=== PATIENT | female | born 1980 | race Hispanic/Latino ===

== ENCOUNTER 2019-11-29 06:36 | Inpatient (IN) | payer MEDICAID, SELFPAY ==
[2019-11-29 07:03] LABS: #Eosinphils 0.3 thou/uL (0.0-0.7); #Lymphocytes 3.3 thou/uL (1.20-3.40); #Monocytes 0.4 thou/uL (0.11-0.59); #Neutrophils 3.9 thou/uL (1.40-6.50); %Basophils 0.5 % (0.0-1.0); %Eosinophils 3.9 % (0.0-10.0); %Lymphocytes 41.6 % (21.0-51.0); %Monocytes 5.5 % (0.0-10.0); %Neutrophils 48.6 % (42.0-75.0); Hemoglobin 8.4 g/dL (12.0-16.0); Mean Corpuscular HGB CONC 33.9 g/dL (32.0-36.0); Mean Corpuscular Hemoglobin 30.7 pg (27.0-31.0); Mean Corpuscular Volume 90.5 fL (78.0-98.0); Platelet Count 187 thou/uL (130-400); RBC Distribution Width 11.4 % (11.5-14.5); Red Blood Cell (RBC) Count 2.75 mill/uL (4.20-5.40)
--- NOTE | 2019-11-29 07:12 | RAD ---
Exam: Chest one view HISTORY:Syncope. Chest pain x3 days. Comparison: None FINDINGS: Lines and tubes: Right-sided HemoSplit dialysis catheter terminates in the cavoatrial junction. Cardiac silhouette: Normal Aorta: Unremarkable Pulmonary vessels: Normal Costophrenic angles: Clear LUNGS: No masses or consolidation. Pneumothorax: None Osseous abnormalities: None IMPRESSION: No acute cardiopulmonary process.
[2019-11-29 07:19] LABS: Albumin 4.5 g/dL (3.5-5.0)
[2019-11-29 07:20] LABS: Chloride 107 mmol/L (98-107); Potassium 3.7 mmol/L (3.5-5.1); Sodium 138 mmol/L (136-145)
[2019-11-29 07:21] LABS: Calcium 7.7 mg/dL (7.8-10.44); Glucose 98 mg/dL (70-105)
[2019-11-29 07:22] LABS: Globulin 2.8 g/dL (2.4-3.5); Protein, Total 7.3 g/dL (6.0-8.3)
[2019-11-29 07:23] LABS: Anion Gap 23 mmol/L (10-20); Bilirubin, Total 0.7 mg/dL (0.2-1.2); Carbon Dioxide 12 mmol/L (22-29)
[2019-11-29 07:24] LABS: Alkaline Phosphatase 129 U/L (40-110)
[2019-11-29 07:25] LABS: Calc. Creatinine Clearance 0 mL/min (70-130); Estimated GFR-MDRD 3
[2019-11-29 07:26] LABS: AST (SGOT) 11 U/L (5-34)
[2019-11-29 07:27] LABS: ALT (SGPT) Less than 7 U/L (8-55); Lipase 68 U/L (8-78)
[2019-11-29 07:28] LABS: CK (CPK) 92 U/L (29-168)
[2019-11-29 07:42] LABS: BUN (Urea Nitrogen) 123 mg/dL (7.0-18.7); Magnesium 2.7 mg/dL (1.6-2.6)
[2019-11-29 07:44] LABS: CKMB 0.6 ng/mL (0-6.6)
[2019-11-29 07:48] LABS: Phosphorus 9.1 mg/dL (2.3-4.7)
--- NOTE | 2019-11-29 11:23 | PDOC.FPRHP ---
- History of Present Illness Chief Complaint: nausea, dizziness, fatigue History of Present Illness: 40YOF with a PMH notable for HTN and idiopathic ESRD who presented to the ED for evaluation for dizziness, generalized fatigue & weakness and nausea that has been ongoing for the last 3-4 days. No reported vomiting, diarrhea, fever, chest pain, SOB, edema, dysuria or hematuria. Still makes urine. Endorses decreased po intake and chills. Also endorses a "warmth in back" that began 3-4 days ago as well. No reported pain or associated rash. that began while back before she started HD & returned 3-4 days ago with dizziness. fatigue & generalized. No sick contacts. Reports she developed similar symptoms prior to her last HD session & that they resolved with HD treatment. Of note, patient reports she was diagnosed with ESRD ~1 year ago and does not know why her kidneys are failing. Has no permanent HD access but was last dialyzed in [place] on 10/30 and 11/04 & Has seen a peg driver, Dr. Makayla Tejada in [place], [place], who prescribed medicine for her HTN & ESRD but reportedly told the patient she could no longer keep seeing her. On further evaluation, it was noted that the patient has multiple charts in [facility] and that she in fact had a workup for her ESRD done here with Dr. Cronin in September of 2015. She underwent renal biopsy which revealed global glomerulosclerosis with severe interstitial fibrosis & tubular atrophy. She also had serology & hepatitis testing which was all negative. - Allergies/Adverse Reactions Allergies Allergy/AdvReac Type Severity Reaction Status Date / Time No Known Allergies Allergy Verified 11/29/19 13:10 - Home Medications Medication Instructions Recorded Confirmed Type Calcitriol 0.25 mcg PO DAILY 11/29/19 11/29/19 History Cholecalciferol (Vitamin D3) 1,250 mcg PO Q7DAYS 11/29/19 11/29/19 History [Vitamin D3] Ferrous Sulfate 325 mg PO 11/29/19 History NIFEdipine [Procardia XL] 30 mg PO DAILY 11/29/19 11/29/19 History Sevelamer Carbonate [Renvela] 800 mg PO TID-WM 11/29/19 11/29/19 History - History PMHx: HTN and idiopathic ESRD PSHx: R temp HD access (11/02/19), C/S x2, cholecystectomy, renal biopsy in 2016 (per chart review) FHx: non-contributory Social: No TAD. Lives with & 3 sons in [place]. Stay at home mom. - Review of Systems General: reports: weight/appetite/sleep changes, fatigue. denies: fever/chills Eyes: denies: eye pain, vision changes ENT: reports: other (no ringing in ears or congestion) Respiratory: denies: cough, shortness of breath Cardiovascular: reports: chest pain (over tunneled cath site). denies: edema Gastrointestinal: reports: nausea. denies: vomiting, diarrhea, abdominal pain Genitourinary: reports: other (no hematuria). denies: dysuria Skin: reports: rashes, itching Musculoskeletal: reports: tenderness, other ("warmth in back") Neurological: denies: numbness, syncope Psychological: denies: anxiety, depression - Vital signs BP: 119/86 HR: 66 RR: 15 Tmax: 98F Pox: 100% on RA Wt: 61 kg - Physical Exam Constitutional: NAD, awake, alert and oriented, well developed HEENT: normocephalic and atraumatic, conjunctiva clear, grossly normal vision, TM's clear and intact, grossly normal hearing, MMM Neck: supple, FROM Chest: other (Tunnel HD cath in R chest) Heart: RRR, normal S1/S2, no murmurs/rubs/gallops, pulses present, no edema Lungs: CTAB, no respiratory distress, good air movement, no rales/rhonchi, no wheezing, no retractions Abdomen: soft, non-tender, bowel sounds present Musculoskeletal: normal structure, normal tone, ROM grossly normal Neurological: no focal deficit, CN II-XII intact Skin: good turgor -Skin: erythematous scaly rash noted on R neck Heme/Lymphatic: no unusual bruising or bleeding, no purpura, no petechia Psychiatric: normal mood and affect, good judgment and insight, intact recent and remote memory FMR H&P: Results - Labs Result Diagrams: 11/29/19 06:45 11/29/19 06:45 Lab results: WBC 8.0 thou/uL (4.8-10.8) 11/29/19 06:45 Hgb 8.4 g/dL (12.0-16.0) L 11/29/19 06:45 Hct 24.9 % (36.0-47.0) L 11/29/19 06:45 MCV 90.5 fL (78.0-98.0) 11/29/19 06:45 Plt Count 187 thou/uL (130-400) 11/29/19 06:45 Neutrophils % 48.6 % (42.0-75.0) 11/29/19 06:45 Sodium 138 mmol/L (136-145) 11/29/19 06:45 Potassium 3.7 mmol/L (3.5-5.1) 11/29/19 06:45 Chloride 107 mmol/L (98-107) 11/29/19 06:45 Carbon Dioxide 12 mmol/L (22-29) L 11/29/19 06:45 BUN 123 mg/dL (7.0-18.7) H 11/29/19 06:45 Creatinine 14.92 mg/dL (0.6-1.1) H 11/29/19 06:45 Glucose 98 mg/dL (70-105) 11/29/19 06:45 Calcium 7.7 mg/dL (7.8-10.44) L 11/29/19 06:45 Total Bilirubin 0.7 mg/dL (0.2-1.2) 11/29/19 06:45 AST 11 U/L (5-34) 11/29/19 06:45 ALT Less than 7 U/L (8-55) L 11/29/19 06:45 Alkaline Phosphatase 129 U/L (40-110) H 11/29/19 06:45 Creatine Kinase 92 U/L (29-168) 11/29/19 06:45 CK-MB (CK-2) 0.6 ng/mL (0-6.6) 11/29/19 06:45 Serum Total Protein 7.3 g/dL (6.0-8.3) 11/29/19 06:45 Albumin 4.5 g/dL (3.5-5.0) 11/29/19 06:45 Lipase 68 U/L (8-78) 11/29/19 06:45 - EKG Interpretation EKG: NSR @ 75 bpm - Radiology Interpretation Chest x-ray Status: image reviewed by me, report reviewed by me (NAF) FMR H&P: A/P - Problem List (1) ESRD (end stage renal disease) on dialysis Current Visit: Yes Status: Chronic Code(s): N18.6 - END STAGE RENAL DISEASE ; Z99.2 - DEPENDENCE ON RENAL DIALYSIS (2) Hyperphosphatemia Current Visit: Yes Status: Acute Code(s): E83.39 - OTHER DISORDERS OF PHOSPHORUS METABOLISM (3) Hypocalcemia Current Visit: Yes Status: Acute Code(s): E83.51 - HYPOCALCEMIA (4) Uremia Current Visit: Yes Status: Acute Code(s): N19 - UNSPECIFIED KIDNEY FAILURE (5) Hypermagnesemia Current Visit: Yes Status: Acute Code(s): E83.41 - HYPERMAGNESEMIA (6) Elevated troponin I level Current Visit: Yes Status: Acute Code(s): R79.89 - OTHER SPECIFIED ABNORMAL FINDINGS OF BLOOD CHEMISTRY (7) Acidosis Current Visit: Yes Status: Acute Code(s): E87.2 - ACIDOSIS (8) Anemia of chronic disease Current Visit: Yes Status: Chronic Code(s): D63.8 - ANEMIA IN OTHER CHRONIC DISEASES CLASSIFIED ELSEWHERE (9) Contact dermatitis Current Visit: Yes Status: Acute Code(s): L25.9 - UNSPECIFIED CONTACT DERMATITIS, UNSPECIFIED CAUSE Qualifiers: Contact dermatitis type: unspecified - Plan 40YOF with a PMH notable for ESRD and HTN who presents for evaluation for nausea , weakness, & dizziness and was found to have severe electrolyte & metabolic derangements requiring urgent HD. #ESRD - Patient presented with Cr & eGFR in CKDVI range, 14.92 and 4. Was recently dialyzed in [place] with a tunnelled cath still present in R chest. Nephrology consulted from the ED & plans to use tunnelled cath for urgent HD today. Nephrology consulted gen surg, Dr. Pierce for permanent HD access. #Uremia - BUN extremely elevated at 123. Plan for HD per nephro. #metabolic acidosis -Bicarb 12. HD per nephro. #hyperphosphatemia - Phos 9.1 on presentation. HD per nephro. #Hypermagnesemia - Mg 2.7 on presentation. HD per nephro. #hypocalcemia - Ca 7.7 on presentation. Resume home meds. #indeterminate troponin - Trop elevated at 0.052 on presentation. Likely 2/2 stress from metabolic derangements. No CP reported or EKG changes concerning for an MA. Will continue to trend and get a repeat EKG should patient develop CP. #Bilateral CVA tenderness - Likely 2/2 ESRD but will obtain a UA for further workup. PRN tylenol for pain. No reported or documented fever, hematuria or dysuria. #Contact dermatitis - Suspected to be 2/2 adhesive around R chest tunnelled cath. Topical hydrocortisone BID PRN. #anemia of chronic disease - Suspect 2/2 CKD. H/H 8.4/24.9. Will resume home iron. #HTN - Will resume home nifedipine. Dispo: Will admit to telemetry for urgent HD and plan for permanent HD per nephrology. IVFs: SL GI PPX: None VTE PPX: SCDs Diet: Renal Abx: None PCP: None/CC--> Possibly [facility] as MR indicate she likely had a pap smear done there in May of 2019. FMR H&P: Upper Level - Plan Date/Time: 11/29/19 1112 I, [], have evaluated this patient and agree with findings/plan as outlined by nurse intern resident. Pertinent changes/additions are listed here.
--- NOTE | 2019-11-29 11:27 | CON ---
DATE OF CONSULTATION: REASON FOR CONSULTATION: End-stage renal disease. HISTORY OF PRESENT ILLNESS: A 40-year-old female was started on dialysis a month ago using tunneled catheter. Etiology of renal failure was unknown. She presented to the hospital with weakness. The patient was noted to have BUN of 123 and creatinine of 14. The patient denies any nausea, vomiting, or chest pain. PAST MEDICAL HISTORY: Significant for hypertension, anemia, and end-stage renal disease. SOCIOECONOMIC HISTORY: No alcohol or drug use. FAMILY HISTORY: Negative for ESRD. ALLERGIES: REVIEWED. MEDICATIONS: Home medications list, reviewed. Hospital medications list, reviewed. REVIEW OF SYSTEMS: 15-point review of systems was performed, negative except for positives noted above. HEENT: Eyes intact, no diplopia. Ears: No hearing loss or earache. Nose: No discharge or bleeding. CHEST: No cough or phlegm. ABDOMEN: No nausea or vomiting. GENITOURINARY: No hematuria. No Hernandez catheter. MUSCULOSKELETAL: No low back pain. No joint swelling or pain. NEUROLOGICAL: No syncope. No seizures. SKIN: No complaints of rash or itching. PSYCHIATRIC: No depression. CONSTITUTIONAL: No weight loss or loss of appetite. PHYSICAL EXAMINATION: GENERAL: The patient is awake and alert. VITAL SIGNS: Afebrile, pulse 75, breathing at 16, blood pressure 130/70. HEENT: Head normocephalic and atraumatic. Eyes intact, no ulcers. Nose intact, no ulcers. Ears intact, no ulcers. NECK: Supple. No JVD. CHEST: Symmetrical and clear. CARDIOVASCULAR: Shows S1 and S2, no rub, no murmur. GASTROINTESTINAL: Abdomen is soft, bowel sounds positive. EXTREMITIES: Show no edema or ulcers. SKIN: Shows no rash or petechiae. MUSCULOSKELETAL: Shows no joint swelling or stiffness. GENITOURINARY: Shows no Hernandez or CVA tenderness. NEUROLOGIC: Motor intact. Cranial nerves intact. LABORATORY DATA: Reviewed. ASSESSMENT AND RECOMMENDATIONS: 1. Stage 6 chronic kidney disease. Plan dialysis. 2. Uremia. Plan dialysis. 3. Acidosis. Plan dialysis. 4. Access. We will do Surgical consultation for arteriovenous fistula. Job ID: [id number]
[2019-11-29 12:02] LABS: HBSAB Concentration 2.45 mIU/mL; HBSAg Index 0.13 S/CO (0-0.99); Hep B Core Total Ab Non-Reactive (NonReactive); Hep B Core Total Index 0.11 S/CO (0-0.79); Hep B Surf AB Non-Reactive (NonReactive); Hep B Surf Ag Non-Reactive S/CO (NonReactive); Hep C IgG Ab Non-Reactive (NonReactive)
--- NOTE | 2019-11-29 12:58 | ULT ---
BILATERAL UPPER EXTREMITY VENOUS DOPPLER ULTRASOUND FOR VEIN MAPPING/DIALYSIS ACCESS: Date: 11/29/2019 HISTORY: End-stage renal disease. FINDINGS: RIGHT UPPER EXTREMITY: The right cephalic vein measures 1.2 mm in the proximal arm, 0.9 mm in the mid arm, 1.3 mm in the dis peggy arm, 1.4 mm in the antecubital fossa, 1.2 mm in the proximal forearm, 0.8 mm in the mid forearm, and 0.7 mm in the distal forearm. The right basilic vein measures 2.2 mm in the proximal arm, 2.0 mm in the mid arm, 2.2 mm in the dist al arm, 2.2 mm in the antecubital fossa, 0.8 mm in the proximal forearm, 0.8 mm in the mid forearm, a nd 0.7 mm in the distal forearm. The right brachial artery measures 5 mm, radial artery measures 2.4 mm, and ulnar artery measures 2.8 mm. LEFT UPPER EXTREMITY: The left cephalic vein measures 1.6 mm in the proximal arm, 1.3 mm in the mid arm, 1.2 mm in the dist al arm, 1.1 mm in the antecubital fossa, 1.4 mm in the proximal forearm, 0.8 mm in the mid forearm, a nd 0.6 mm in the distal forearm. The left basilic vein measures 1.4 mm in the proximal arm, 1.2 mm in the mid arm, 1.6 mm in the dista l arm, 2.0mm in the antecubital fossa, 0.6 mm in the proximal forearm, 0.6 mm in the mid forearm, and 0.8 mm in the distal forearm. The left brachial artery measures 3 mm, radial artery measures 2.6 mm, and ulnar artery measures 2.1 mm. POS: [facility]
[2019-11-29 14:17] LABS: Troponin I 0.034 ng/mL (< 0.028)
[2019-11-29 15:55] LABS: Bilirubin Negative (Negative); Blood, Urine Trace (Negative); Clarity Turbid (Clear); Glucose, Urine (Dipstick) Normal (Negative); Leukocyte 250 Leu/uL (Negative); Nitrite Negative (Negative); Protein, Urine (Dipstick) 100 mg/dL (Neg-Trace); RBC/HPF 0-3 HPF (0-3); Urobilinogen Normal mg/dL (Less than 2)
[2019-11-29 16:15] LABS: Bacteria/HPF 1+ HPF (None Seen)
[2019-11-29 16:16] LABS: Urine Culture Reflex No No
[2019-11-29] MEDS: Ferrous Sulfate 325 MG TAB PO SCH (16:40)
[2019-11-29] MEDS: Sevelamer Carbonate 800 MG TAB PO SCH (19:25)
[2019-11-29] MEDS: Preparation H HC 1% Cream 26 GM TUBE TOP SCH (20:50)
[2019-11-29] MEDS: Calcitriol 0.25 MCG CAP PO SCH (20:50)
[2019-11-30] MEDS: Acetaminophen 325 MG TAB PO PRN (03:36)
[2019-11-30 04:08] LABS: #Basophils 0.1 thou/uL (0.0-0.2); #Eosinphils 0.2 thou/uL (0.0-0.7); #Lymphocytes 2.4 thou/uL (1.20-3.40); #Monocytes 0.4 thou/uL (0.11-0.59); #Neutrophils 3.1 thou/uL (1.40-6.50); %Basophils 1.5 % (0.0-1.0); %Eosinophils 3.4 % (0.0-10.0); %Lymphocytes 38.9 % (21.0-51.0); %Neutrophils 50.2 % (42.0-75.0); Hemoglobin 8.2 g/dL (12.0-16.0); Mean Corpuscular HGB CONC 34.4 g/dL (32.0-36.0); Mean Corpuscular Hemoglobin 30.9 pg (27.0-31.0); Mean Corpuscular Volume 89.6 fL (78.0-98.0); Mean Platelet Volume 7.8 fL (7.4-10.4); Platelet Count 173 thou/uL (130-400); RBC Distribution Width 11.5 % (11.5-14.5); Red Blood Cell (RBC) Count 2.66 mill/uL (4.20-5.40); White Blood Cell (WBC) Count 6.1 thou/uL (4.8-10.8)
[2019-11-30 04:38] LABS: Anion Gap 18 mmol/L (10-20); BUN (Urea Nitrogen) 49 mg/dL (7.0-18.7); Calc. Creatinine Clearance 9 mL/min (70-130); Carbon Dioxide 20 mmol/L (22-29); Chloride 104 mmol/L (98-107); Estimated GFR-MDRD 6; Glucose 87 mg/dL (70-105); Magnesium 2.2 mg/dL (1.6-2.6); Phosphorus 5.3 mg/dL (2.3-4.7); Potassium 3.1 mmol/L (3.5-5.1); Sodium 139 mmol/L (136-145)
[2019-11-30] MEDS ORDERED: Heparin 10,000 UNITS/ 10 ML VIAL ONE (09:36)
[2019-11-30] MEDS ORDERED: Potassium Chloride 20 MEQ TAB PO SCH (10:45)
[2019-11-30] MEDS: Calcitriol 0.25 MCG CAP PO SCH ×2 (11:29→20:05)
[2019-11-30] MEDS: NIFEdipine XL 30 MG TAB PO SCH (11:29)
[2019-11-30] MEDS: Sevelamer Carbonate 800 MG TAB PO SCH ×3 (11:29→16:18)
[2019-11-30] MEDS: Preparation H HC 1% Cream 26 GM TUBE TOP SCH ×2 (12:24→20:05)
[2019-11-30] MEDS: Ondansetron ODT 4 MG TAB PO PRN (13:08)
--- NOTE | 2019-11-30 15:42 | PRG ---
DATE OF SERVICE: 11/30/2019 SUBJECTIVE: A 39-year-old female, being seen for end-stage renal disease. The patient denies any nausea, vomiting, or chest pain. PHYSICAL EXAMINATION: General: The patient is awake and alert. Vital Signs: Afebrile, pulse 95, breathing at 16, blood pressure 122/69. HEENT: Head normocephalic and atraumatic. Eyes intact, no ulcers. Nose intact, no ulcers. Ears intact, no ulcers. Neck: Supple. No JVD. Chest: Symmetrical and clear. Cardiovascular: Shows S1 and S2, no rub, no murmur. Gastrointestinal: Abdomen is soft, bowel sounds positive. Extremities: Show no edema or ulcers. Skin: Shows no rash or petechiae. Musculoskeletal: Shows no joint swelling or stiffness. Genitourinary: Shows no Hernandez or CVA tenderness. Neurologic: Motor intact. Cranial nerves intact. LABORATORY DATA: Hemoglobin 8.2. Potassium 3.9. ASSESSMENT AND PLAN: 1. Stage 6 chronic kidney disease, plan dialysis. 2. Uremia, improved. 3. Hypertension, stable. 4. Anemia, stable. I will start Epogen 40,000 units. Job ID: [id number]
--- NOTE | 2019-11-30 21:16 | PDOC.HOSPP ---
- Subjective Encounter Date: 11/30/19 Encounter Time: 10:00 Subjective: Patient has no complaints. reported a mild headache that is getting better. She is asking where to get dialysis at Patient reports no PCP. Does not recall who her manager planning is. She is not sure how long she is on dialysis for - Objective Vital Signs & Weight: Vital Signs (12 hours) Temp Pulse Resp BP BP Pulse Ox 11/30/19 19:35 98.5 F 81 16 104/64 98 11/30/19 16:13 97.7 F 74 16 111/65 99 11/30/19 11:18 97.7 F 75 17 128/69 98 Weight Admit Weight 132 lb Weight 132 lb 1.6 oz I&O: 11/29/19 11/30/19 12/01/19 06:59 06:59 06:59 Intake Total 720 360 Output Total 300 Balance 420 360 Result Diagrams: 11/30/19 03:19 11/30/19 03:19 Hospitalist ROS - Review of Systems Constitutional: denies: fever, chills - Medication Medications: Active Medications Generic Name Dose Route Start Last Admin Trade Name Freq PRN Reason Stop Dose Admin Acetaminophen 650 mg 11/29/19 13:41 11/30/19 03:36 Tylenol PO 650 mg Q4H PRN Administration Headache/Fever/Mild Pain (1-3) Calcitriol 0.25 mcg 11/29/19 21:00 11/30/19 20:05 Rocaltrol PO 0.25 mcg BID JAYDA Administration Ferrous Sulfate 325 mg 11/29/19 13:41 11/29/19 16:40 Feosol PO 325 mg Q2DAYS JAYDA Administration Hydrocortisone Sodium Succinate 1 gm 11/29/19 21:00 11/30/19 20:05 Preparation H Hc Cream TOP 1 gm BID JAYDA Administration Nifedipine 30 mg 11/30/19 09:00 11/30/19 11:29 Procardia Xl PO 30 mg DAILY JAYDA Administration Ondansetron HCl 4 mg 11/29/19 13:41 11/30/19 13:08 Zofran Odt PO 4 mg Q6H PRN Administration Nausea/Vomiting Sevelamer Carbonate 800 mg 11/29/19 17:00 11/30/19 16:18 Renvela PO 800 mg TID-WM JAYDA Administration - Exam General Appearance: NAD, awake alert Eye: PERRL, anicteric sclera ENT: normocephalic atraumatic, no oropharyngeal lesions Neck: supple, symmetric, no JVD Heart: RRR, no murmur, no gallops, no rubs Respiratory: CTAB, no wheezes, no rales, no ronchi Gastrointestinal: soft, non-tender, non-distended Extremities: no cyanosis, no clubbing, no edema Skin: normal turgor, no lesions, no rashes Hosp A/P - Plan This is a 39 year old female with past medical history of glomerulosclerosis presenting with dizziness, fatigue, weakness nausea, has not received dialysis in CKD stage with global glomeruloscerosis - getting dialysis - needs case management consult for outpatient dialysis set up Hypokalemia - K 3.1, replaced. Will recheck tomorrow Hyperphosphatemia - improving. Continue with dialysis prn Elevated troponin - likely from ESRD. Downtrending
[2019-12-01 04:33] LABS: Hemoglobin 8.2 g/dL (12.0-16.0); Mean Corpuscular HGB CONC 32.9 g/dL (32.0-36.0); Mean Corpuscular Hemoglobin 30.4 pg (27.0-31.0); Mean Corpuscular Volume 92.3 fL (78.0-98.0); Platelet Count 160 thou/uL (130-400); RBC Distribution Width 11.5 % (11.5-14.5); Red Blood Cell (RBC) Count 2.69 mill/uL (4.20-5.40); White Blood Cell (WBC) Count 6.8 thou/uL (4.8-10.8)
[2019-12-01 04:54] LABS: Anion Gap 14 mmol/L (10-20); BUN (Urea Nitrogen) 23 mg/dL (7.0-18.7); Calc. Creatinine Clearance 13 mL/min (70-130); Calcium 8.5 mg/dL (7.8-10.44); Carbon Dioxide 27 mmol/L (22-29); Chloride 102 mmol/L (98-107); Estimated GFR-MDRD 9; Glucose 93 mg/dL (70-105); Potassium 3.9 mmol/L (3.5-5.1); Sodium 139 mmol/L (136-145)
[2019-12-01] MEDS: Calcitriol 0.25 MCG CAP PO SCH ×2 (09:57→21:16)
[2019-12-01] MEDS: NIFEdipine XL 30 MG TAB PO SCH (09:57)
[2019-12-01] MEDS: Sevelamer Carbonate 800 MG TAB PO SCH ×3 (09:57→17:11)
[2019-12-01] MEDS: Preparation H HC 1% Cream 26 GM TUBE TOP SCH ×2 (10:04→21:19)
[2019-12-01] MEDS: Ferrous Sulfate 325 MG TAB PO SCH (12:43)
--- NOTE | 2019-12-01 15:25 | PRG ---
DATE OF SERVICE: 12/01/2019 SUBJECTIVE: A 39-year-old female, being seen for end-stage renal disease. The patient denied any nausea, vomiting, or chest pain. OBJECTIVE: GENERAL: The patient is awake and alert. VITAL SIGNS: Afebrile, pulse 75, breathing at 16, blood pressure 111/65. HEENT: Head normocephalic and atraumatic. Eyes intact, no ulcers. Nose intact, no ulcers. Ears intact, no ulcers. Neck: Supple. No JVD. Chest: Symmetrical and clear. Cardiovascular: Shows S1 and S2, no rub, no murmur. Gastrointestinal: Abdomen is soft, bowel sounds positive. Extremities: Show no edema or ulcers. Skin: Shows no rash or petechiae. Musculoskeletal: Shows no joint swelling or stiffness. Genitourinary: Shows no Hernandez or CVA tenderness. Neurologic: Motor intact. Cranial nerves intact. LABORATORY DATA: Reviewed. ASSESSMENT AND PLAN: 1. Stage 6 chronic kidney disease, stable. 2. Hypertension, stable. 3. Anemia, stable. 4. Medication based on GFR appropriate. Job ID: [id number]
--- NOTE | 2019-12-01 16:19 | PDOC.HOSPP ---
- Subjective Encounter Date: 12/01/19 Encounter Time: 10:00 Subjective: The patient is doing okay. She states she vomited once yesterday after dialysis and had some nausea. No nausea today. No diarrhea or abd pain. Patient worried about how she will afford dialysis. Reports that all her family is in the [place] and nobody is in [place] - Objective Vital Signs & Weight: Vital Signs (12 hours) Temp Pulse Resp BP Pulse Ox 12/01/19 15:24 98.4 F 80 16 100/66 98 12/01/19 11:15 98.8 F 84 18 111/65 97 12/01/19 07:18 98.2 F 84 14 100/56 L 97 Weight Admit Weight 132 lb Weight 130 lb 1.6 oz I&O: 11/30/19 12/01/19 12/02/19 06:59 06:59 06:59 Intake Total 720 660 Output Total 300 Balance 420 660 Result Diagrams: 12/01/19 04:13 12/01/19 04:13 Hospitalist ROS - Review of Systems Constitutional: denies: fever, chills - Medication Medications: Active Medications Generic Name Dose Route Start Last Admin Trade Name Freq PRN Reason Stop Dose Admin Acetaminophen 650 mg 11/29/19 13:41 11/30/19 03:36 Tylenol PO 650 mg Q4H PRN Administration Headache/Fever/Mild Pain (1-3) Calcitriol 0.25 mcg 11/29/19 21:00 12/01/19 09:57 Rocaltrol PO 0.25 mcg BID JAYDA Administration Ferrous Sulfate 325 mg 11/29/19 13:41 12/01/19 12:43 Feosol PO 325 mg Q2DAYS JAYDA Administration Hydrocortisone Sodium Succinate 1 gm 11/29/19 21:00 12/01/19 10:04 Preparation H Hc Cream TOP 1 gm BID JAYDA Administration Nifedipine 30 mg 11/30/19 09:00 12/01/19 09:57 Procardia Xl PO Not Given DAILY JAYDA Ondansetron HCl 4 mg 11/29/19 13:41 11/30/19 13:08 Zofran Odt PO 4 mg Q6H PRN Administration Nausea/Vomiting Sevelamer Carbonate 800 mg 11/29/19 17:00 12/01/19 12:21 Renvela PO 800 mg TID-WM JAYDA Administration - Exam General Appearance: NAD, awake alert Eye: PERRL, anicteric sclera ENT: normocephalic atraumatic, no oropharyngeal lesions Neck: no JVD Heart: RRR, no murmur, no gallops, no rubs Respiratory: CTAB, no wheezes, no rales, no ronchi Gastrointestinal: soft, non-tender, non-distended, normal bowel sounds Extremities: no cyanosis, no clubbing, no edema Skin: normal turgor, no lesions, no rashes Neurological: cranial nerve grossly intact, normal sensation to touch, no focal deficits, no new deficit Musculoskeletal: normal tone, normal strength, no muscle wasting Psychiatric: normal affect, normal behavior, A&O x 3 Hosp A/P - Plan This is a 39 year old female with past medical history of glomerulosclerosis presenting with dizziness, fatigue, weakness nausea, has not received dialysis in CKD stage with global glomeruloscerosis - getting dialysis - pending case management evaluation Hypokalemia -resolved Hyperphosphatemia - improved. Recheck tomorrow Elevated troponin - likely from ESRD. No chest pain
[2019-12-02] MEDS: Sevelamer Carbonate 800 MG TAB PO SCH ×3 (08:16→19:12)
[2019-12-02] MEDS: Calcitriol 0.25 MCG CAP PO SCH ×2 (08:16→20:36)
[2019-12-02] MEDS: NIFEdipine XL 30 MG TAB PO SCH (08:16)
[2019-12-02] MEDS: Ondansetron ODT 4 MG TAB PO PRN (08:16)
[2019-12-02] MEDS: Preparation H HC 1% Cream 26 GM TUBE TOP SCH ×2 (08:16→20:36)
[2019-12-02 09:48] LABS: Hemoglobin 7.9 g/dL (12.0-16.0); Mean Corpuscular HGB CONC 33.7 g/dL (32.0-36.0); Mean Platelet Volume 8.1 fL (7.4-10.4); Platelet Count 150 thou/uL (130-400); RBC Distribution Width 11.5 % (11.5-14.5); Red Blood Cell (RBC) Count 2.53 mill/uL (4.20-5.40); White Blood Cell (WBC) Count 7.6 thou/uL (4.8-10.8)
[2019-12-02 10:18] LABS: Anion Gap 20 mmol/L (10-20); BUN (Urea Nitrogen) 46 mg/dL (7.0-18.7); Calc. Creatinine Clearance 9 mL/min (70-130); Calcium 8.6 mg/dL (7.8-10.44); Carbon Dioxide 22 mmol/L (22-29); Chloride 100 mmol/L (98-107); Estimated GFR-MDRD 5; Glucose 117 mg/dL (70-105); Potassium 3.6 mmol/L (3.5-5.1); Sodium 138 mmol/L (136-145)
[2019-12-02] MEDS ORDERED: Heparin 10,000 UNITS/ 10 ML VIAL ONE (10:55)
--- NOTE | 2019-12-02 14:45 | PRG ---
DATE OF SERVICE: 12/02/2019 SUBJECTIVE: Patient was seen and examined at bedside and overnight events noted. Patient denies any shortness of breath or chest pain or palpitation. No history of nausea or vomiting or diarrhea or fever or chills or cramps. OBJECTIVE: GENERAL: This is a well-built female, in no acute distress. VITAL SIGNS: Temperature 97.9, heart rate 79. Respiratory rate 18. Blood pressure 111/67. HEENT: Atraumatic, normocephalic. Oral mucosa is moist NECK: Supple. CARDIOVASCULAR: S1, S2 heard. Rate and rhythm regular. RESPIRATORY: Clear to auscultation. GASTROINTESTINAL: Abdomen is soft. MUSCULOSKELETAL: No tenderness. No edema. DERMATOLOGIC: No skin rash. NEUROLOGIC: Alert and awake and oriented X3. No focal neurologic deficits. Moving all the extremities. PSYCHIATRIC: Mood and affect normal. LABORATORY DATA: Potassium 3.6, BUN is 46, and creatinine is 8.5. ASSESSMENT AND PLAN: 1. End-stage renal disease. Continue dialysis as tolerated. Follow up with Case Management to arrange outpatient dialysis. The patient may not have documents to get approved for outpatient dialysis. 2. History of hypertension. 3. Chronic anemia. 4. Hyperkalemia, better. 5. Hyperphosphatemia. 6. Follow up with surgery for long-term access placement. Follow up with Case Management for outpatient placement. Job ID: [id number] [facility]
--- NOTE | 2019-12-02 18:48 | PDOC.HOSPP ---
- Subjective Encounter Date: 12/02/19 Encounter Time: 10:30 Subjective: The patient is doing well, no complaints. Reports urinating some, no SB or chest pain, no nausea or vomiting. She is getting fistula placed later this week - Objective Vital Signs & Weight: Vital Signs (12 hours) Temp Pulse Resp BP Pulse Ox 12/02/19 11:10 97.9 F 79 14 93/52 L 95 12/02/19 08:16 111/67 12/02/19 07:06 98.4 F 72 16 101/65 99 Weight Admit Weight 132 lb Weight 135 lb 9.349 oz I&O: 12/01/19 12/02/19 12/03/19 06:59 06:59 06:59 Intake Total 660 780 Output Total 100 Balance 660 680 Result Diagrams: 12/02/19 09:32 12/02/19 09:32 Hospitalist ROS - Review of Systems Constitutional: denies: fever, chills Eyes: denies: pain - Medication Medications: Active Medications Generic Name Dose Route Start Last Admin Trade Name Freq PRN Reason Stop Dose Admin Acetaminophen 650 mg 11/29/19 13:41 11/30/19 03:36 Tylenol PO 650 mg Q4H PRN Administration Headache/Fever/Mild Pain (1-3) Calcitriol 0.25 mcg 11/29/19 21:00 12/02/19 08:16 Rocaltrol PO 0.25 mcg BID JAYDA Administration Ferrous Sulfate 325 mg 11/29/19 13:41 12/01/19 12:43 Feosol PO 325 mg Q2DAYS JAYDA Administration Hydrocortisone Sodium Succinate 1 gm 11/29/19 21:00 12/02/19 08:16 Preparation H Hc Cream TOP 1 gm BID JAYDA Administration Nifedipine 30 mg 11/30/19 09:00 12/02/19 08:16 Procardia Xl PO 30 mg DAILY JAYDA Administration Ondansetron HCl 4 mg 11/29/19 13:41 12/02/19 08:16 Zofran Odt PO 4 mg Q6H PRN Administration Nausea/Vomiting Sevelamer Carbonate 800 mg 11/29/19 17:00 12/02/19 11:17 Renvela PO 800 mg TID-WM JAYDA Administration - Exam General Appearance: NAD, awake alert Eye: PERRL, anicteric sclera ENT: normocephalic atraumatic, no oropharyngeal lesions Neck: supple, no JVD Heart: RRR, no murmur, no gallops, no rubs Respiratory: CTAB, no wheezes, no rales, no ronchi Gastrointestinal: soft, non-tender, non-distended, normal bowel sounds Extremities: no cyanosis, no clubbing, no edema Skin: normal turgor, no lesions, no rashes Hosp A/P - Plan This is a 39 year old female with past medical history of glomerulosclerosis presenting with dizziness, fatigue, weakness nausea, has not received dialysis in CKD stage with global glomeruloscerosis - getting dialysis today - getting fistula placed later this week Hypokalemia -resolved Hyperphosphatemia - improved. Recheck tomorrow Elevated troponin - likely from ESRD. No chest pain
[2019-12-02] MEDS: Acetaminophen 325 MG TAB PO PRN (23:14)
[2019-12-03 05:06] LABS: Calc. Creatinine Clearance 15 mL/min (70-130); Estimated GFR-MDRD 10
[2019-12-03 05:07] LABS: Phosphorus 4.4 mg/dL (2.3-4.7)
[2019-12-03] MEDS: NIFEdipine XL 30 MG TAB PO SCH (09:10)
[2019-12-03] MEDS: Sevelamer Carbonate 800 MG TAB PO SCH ×3 (09:10→17:49)
[2019-12-03] MEDS: Calcitriol 0.25 MCG CAP PO SCH ×2 (09:10→20:21)
[2019-12-03] MEDS: Preparation H HC 1% Cream 26 GM TUBE TOP SCH ×2 (09:11→20:21)
--- NOTE | 2019-12-03 12:50 | PRG ---
DATE OF SERVICE: 12/03/2019 SUBJECTIVE: Patient was seen and examined at bedside and overnight events noted. Patient denies any shortness of breath or chest pain or palpitation. No history of nausea or vomiting or diarrhea or fever or chills or cramps. OBJECTIVE: GENERAL: This is a well built female, in no apparent distress. VITAL SIGNS: Temperature 98.6. Heart rate . Respiratory rate 16. Blood pressure 104/56. HEENT: Atraumatic, normocephalic. Oral mucosa is moist NECK: Supple. CARDIOVASCULAR: S1, S2 heard. Rate and rhythm regular. RESPIRATORY: Clear to auscultation. GASTROINTESTINAL: Abdomen is soft. MUSCULOSKELETAL: No tenderness. No edema. DERMATOLOGIC: No skin rash. NEUROLOGIC: Alert and awake and oriented X3. No focal neurologic deficits. Moving all the extremities. PSYCHIATRIC: Mood and affect normal. LABORATORY DATA: Potassium 4.0, creatinine is 4.8. ASSESSMENT AND PLAN: 1. End-stage renal disease. Current dialysis as tolerated. 2. Hypertension. 3. Chronic anemia. 4. Hyperkalemia. 5. Labs are better. Continue dialysis. Follow with Case Management for outpatient placement. Job ID: [id number]
[2019-12-03] MEDS: Ferrous Sulfate 325 MG TAB PO SCH (13:06)
[2019-12-03] MEDS ORDERED: Polyethylene Glycol 3350 17 GM Packet PO PRN (16:24)
--- NOTE | 2019-12-03 16:28 | PDOC.HOSPP ---
- Subjective Encounter Date: 12/03/19 Encounter Time: 09:30 Subjective: The patient states she has no complaints other than some mild nausea and some constipation. ' - Objective Vital Signs & Weight: Vital Signs (12 hours) Temp Pulse Resp BP BP Pulse Ox 12/03/19 12:00 98.5 F 75 18 96/56 L 95 12/03/19 10:46 98 12/03/19 09:10 81 104/56 L 12/03/19 08:00 98.6 F 81 16 104/56 L 98 Weight Admit Weight 132 lb Weight 136 lb 3.931 oz I&O: 12/02/19 12/03/19 12/04/19 06:59 06:59 06:59 Intake Total 780 530 Output Total 100 100 Balance 680 430 Result Diagrams: 12/02/19 09:32 12/03/19 03:57 Hospitalist ROS - Review of Systems Constitutional: denies: fever, chills - Medication Medications: Active Medications Generic Name Dose Route Start Last Admin Trade Name Freq PRN Reason Stop Dose Admin Acetaminophen 650 mg 11/29/19 13:41 12/02/19 23:14 Tylenol PO 650 mg Q4H PRN Administration Headache/Fever/Mild Pain (1-3) Calcitriol 0.25 mcg 11/29/19 21:00 12/03/19 09:10 Rocaltrol PO 0.25 mcg BID JAYDA Administration Ferrous Sulfate 325 mg 11/29/19 13:41 12/03/19 13:06 Feosol PO 325 mg Q2DAYS JAYDA Administration Hydrocortisone Sodium Succinate 1 gm 11/29/19 21:00 12/03/19 09:11 Preparation H Hc Cream TOP 1 gm BID JAYDA Administration Nifedipine 30 mg 11/30/19 09:00 12/03/19 09:10 Procardia Xl PO 30 mg DAILY JAYDA Administration Ondansetron HCl 4 mg 11/29/19 13:41 12/02/19 08:16 Zofran Odt PO 4 mg Q6H PRN Administration Nausea/Vomiting Sevelamer Carbonate 800 mg 11/29/19 17:00 12/03/19 13:06 Renvela PO 800 mg TID-WM JAYDA Administration - Exam General Appearance: NAD, awake alert Eye: PERRL, anicteric sclera ENT: normocephalic atraumatic, no oropharyngeal lesions Neck: no JVD Heart: RRR, no murmur, no gallops, no rubs Respiratory: CTAB, no wheezes, no rales, no ronchi Gastrointestinal: soft, non-tender, non-distended, normal bowel sounds Extremities: no cyanosis, no clubbing, no edema Skin - other findings: tunneled catheter in chest Neurological: cranial nerve grossly intact, normal sensation to touch, no focal deficits, no new deficit Hosp A/P - Plan This is a 39 year old female with past medical history of glomerulosclerosis presenting with dizziness, fatigue, weakness nausea, has not received dialysis in CKD stage with global glomeruloscerosis -got dialysis 12/01 - will check with surgery about plans for fistula placement prior to discharge Hypokalemia -resolved Hyperphosphatemia -resolved Elevated troponin - likely from ESRD. No chest pain - ECHO shows mild MR and mild TR with no wall motion abnormalities
--- NOTE | 2019-12-04 03:13 | CON ---
DATE OF CONSULTATION: REASON FOR CONSULTATION: Need for dialysis access. HISTORY OF PRESENT ILLNESS: Ms. Jude Ramos is a 39-year-old woman with end-stage renal failure of unclear cause. She had a dialysis catheter placed about a month ago in [place] and presented to the emergency room with nausea, fatigue, and dizziness needing institution of dialysis. She was admitted for this and has been undergoing dialysis over the weekend without difficulty. She has been tolerating the dialysis fairly well, but states that after the dialysis is completed, she does have a throbbing headache. She states that she does not have any long-standing history of hypertension or diabetes and that the cause of her renal failure is not known. MEDICATIONS: Outpatient medications include; 1. Vitamin D. 2. Iron. 3. Nifedipine. 4. Renvela. PAST SURGICAL HISTORY: Includes multiple C-sections and the tunneled dialysis catheter. PAST MEDICAL HISTORY: Renal failure and hypertension. LABORATORY DATA: White count is normal at 7.6, hematocrit is low at 23, platelets 150. BUN and creatinine are 46 and 8.51. PHYSICAL EXAMINATION: VITAL SIGNS: Normal. HEENT: Unremarkable. NECK: Supple without lymphadenopathy or thyroid nodules. HEART: Regular in its rate and rhythm without murmurs, rubs, or gallops. LUNGS: Clear to auscultation bilaterally. ABDOMEN: Soft, nontender, nondistended. EXTREMITIES: Warm and well perfused. She has very small veins bilaterally, although they are somewhat larger at the antecubital fossa. She is right-handed. She has radial dominant filling on Suleiman's testing on the left arm and bilateral filling on the right. NEUROLOGIC: No focal deficits. PSYCHIATRIC: Alert, oriented, and appropriate. IMAGING: Her left cephalic vein ranges from 0.6 to 1.1 mm in the lower arm and up to 1.6 mm in the upper arm. Right cephalic vein ranges from 0.7 to 1.4 mm in the lower arm that is somewhat smaller in the upper arm. Basilic veins in the left upper arm ranged from 1.2 to 2 mm and on the right from 0.9 to 1.4 mm. ASSESSMENT: End-stage renal failure with need for permanent access. She has small veins bilaterally, but the left basilic vein is the most potentially usable. Her forearm cephalic vein is quite small, but it is potentially usable as well. Since she is right arm dominant, we will attempt a left arm access for her. She is on the OR schedule for tomorrow. Inherent risks of surgery were discussed with the patient using a German language interpreter. These include, but are not limited to bleeding, infection, risks of anesthesia, failure of the fistula to develop or need for other procedures to obtain a working fistula, need for other procedures such as transposition and arterial steal, which can lead to ischemic damage to the hand. The signs and symptoms of steal were explained to the patient and she knows that she needs to seek immediate surgical attention if these occur. All of her questions were answered and she wishes to proceed. Job ID: [id number]
[2019-12-04 04:49] LABS: Hemoglobin 7.6 g/dL (12.0-16.0)
[2019-12-04 05:17] LABS: Anion Gap 16 mmol/L (10-20); BUN (Urea Nitrogen) 50 mg/dL (7.0-18.7); Calc. Creatinine Clearance 10 mL/min (70-130); Calcium 8.4 mg/dL (7.8-10.44); Carbon Dioxide 25 mmol/L (22-29); Chloride 99 mmol/L (98-107); Estimated GFR-MDRD 6; Glucose 87 mg/dL (70-105); Phosphorus 5.4 mg/dL (2.3-4.7); Potassium 4.3 mmol/L (3.5-5.1); Sodium 136 mmol/L (136-145)
[2019-12-04 07:47] LABS: BHCG - Serum Negative (NEGATIVE); Pregs Control Background? CLEAR/WHITE (CLR/WHITE); Pregs Control Bar Appear? YES (CONTROL BAR)
[2019-12-04] MEDS ORDERED: Midazolam HCl 2 mg/2 ml Vial ONE ×2 (08:25→08:35)
[2019-12-04] MEDS ORDERED: Fentanyl 100 MCG/2 ML VIAL ONE ×2 (08:25→08:35)
[2019-12-04] MEDS ORDERED: Lidocaine 1% w/Epinephrine 1:100K 20 ML VIAL ONE (08:26)
[2019-12-04] MEDS ORDERED: Bupivacaine 0.25% HCL 30 ML VIAL ONE (08:26)
[2019-12-04] MEDS ORDERED: Protamine Sulfate 50 MG/5 ML VIAL ONE (08:26)
[2019-12-04] MEDS ORDERED: Heparin 5,000 UNITS/ML VIAL ONE (08:26)
[2019-12-04] MEDS ORDERED: Phenylephrine 10 MG/ML VIAL ONE (08:36)
[2019-12-04] MEDS ORDERED: Propofol 500 MG/50 ML VIAL ONE (08:36)
[2019-12-04] MEDS ORDERED: Ketamine 50 MG/ML (10ML VIAL) ONE (08:36)
[2019-12-04] MEDS ORDERED: Ondansetron HCl/PF 4 MG/2 ML Vial IVP PRN (10:43)
[2019-12-04] MEDS ORDERED: Promethazine HCl 25 MG/ML VIAL IM PRN (10:43)
[2019-12-04] MEDS ORDERED: PACU-Morphine 4MG/ML VIAL SLOW IVP PRN (10:43)
[2019-12-04] MEDS ORDERED: HYDROmorphone 2 MG/ML VIAL SLOW IVP PRN (10:43)
[2019-12-04] MEDS ORDERED: Promethazine HCl 25 MG/ML VIAL SLOW IVP PRN (10:43)
[2019-12-04] MEDS ORDERED: CEFAZOLIN 2 GM in Premix Bag 1 BAG IVPB SCH (10:45)
--- NOTE | 2019-12-04 10:57 | PDOC.OP ---
Operative Note - Operative Note Operative Note: DATE OF PROCEDURE: 12/04/2019 PROCEDURE: Left Hollie AV fistula. SURGEON: Jose Hardy M.D. PREOPERATIVE DIAGNOSIS: End-stage renal failure. POSTOPERATIVE DIAGNOSIS: End-stage renal failure. HISTORY: Patient with end-stage renal failure who requires permanent access for ongoing hemodialysis. After reviewing vein mapping the decision was made to proceed with a primary fistula on the left. PROCEDURE: After informed consent was obtained and appropriate preoperative antibiotics administered, the patient was taken to the operating room and was placed in supine position and general anesthesia was administered. A preoperative block had been placed by anesthesia and adequacy confirmed. The patient's arm was prepped and draped in standard sterile fashion. The palpable cephalic vein and radial artery were marked on the skin. An incision was made between these 2 structures and dissection carried down to the cephalic vein. This was felt to be of adequate caliber and quality to support an AV fistula. The vein was interrogated with cardiac dilators and easily accepted up to a 4 mm dilator. The vein was flushed with heparinized saline and clamped. The radial artery was identified and dissected free and was felt to be of adequate caliber and quality to support a fistula. This was dissected free. Heparin was administered systemically and allowed to circulate for 3 minutes. After the heparin had circulated for 3 minutes, the radial artery was clamped proximally and distally. An anterior arteriotomy was created with an 11 blade and extended with Sanchez scissors. The vein was spatulated and an end-to-side anastomosis was created with excellent technical result. Prior to tying down the anastomosis, the arterial inflow was released flushing the anastomosis. The anastomosis was then secured and hemostasis was verified. Flow was established first through the fistula following which flow was restored through the artery. The patient had a palpable thrill in the cephalic vein as well as a good Doppler signal to the level of the antecubital fossa. The wound was irrigated and examined for hemostasis was again confirmed to be excellent. The subcutaneous tissues were reapproximated with a running 3-0 Monocryl sutures and the skin was closed with running 4-0 subcuticular Monocryl suture. Dermabond dressings were placed. Prior to leaving the operating room the fistula was again examined by Doppler and a good bruit confirmed. The patient was then taken to recovery in good condition. Estimated blood loss was minimal. There were no complications. There were no specimens.
[2019-12-04] MEDS: Calcitriol 0.25 MCG CAP PO SCH ×2 (11:29→20:13)
[2019-12-04] MEDS: Sevelamer Carbonate 800 MG TAB PO SCH ×3 (11:29→18:25)
[2019-12-04] MEDS: NIFEdipine XL 30 MG TAB PO SCH (11:31)
[2019-12-04] MEDS: Preparation H HC 1% Cream 26 GM TUBE TOP SCH ×2 (11:42→20:15)
[2019-12-04] MEDS ORDERED: EPHEDRINE 25 MG/5 ML SYRINGE ONE (12:15)
[2019-12-04] MEDS ORDERED: Bupivacaine HCl 0.5%/Epinephrine 1:200,000/PF 30 ml Vial ONE (12:15)
--- NOTE | 2019-12-04 12:56 | PRG ---
DATE OF SERVICE: 12/04/2019 SUBJECTIVE: The patient was seen and examined at bedside and overnight events noted. The patient denies any shortness of breath or chest pain or palpitation. No history of nausea or vomiting or diarrhea or fever or chills or cramps. OBJECTIVE: GENERAL: This is a well-built female, in no apparent distress. VITAL SIGNS: Temperature 98.3. Heart rate 84. Respiratory rate 14. Blood pressure 132/74. HEENT: Atraumatic, normocephalic. Oral mucosa is moist. NECK: Supple. CARDIOVASCULAR: S1, S2 heard. Rate and rhythm regular. RESPIRATORY: Clear to auscultation. GASTROINTESTINAL: Abdomen is soft. MUSCULOSKELETAL: No tenderness. No edema. DERMATOLOGIC: No skin rash. NEUROLOGIC: Alert and awake and oriented x3. No focal neurologic deficits. Moving all the extremities. PSYCHIATRIC: Mood and affect normal. LABORATORY DATA: Potassium 4.3, BUN is 50, creatinine is 7.09. ASSESSMENT AND PLAN: 1. End-stage renal disease. Continue on dialysis as tolerated. 2. Hypertension. 3. Anemia. 4. Hyperkalemia, better. Continue on dialysis as tolerated. Appreciate help from Surgery. The patient cannot have outpatient dialysis due to lack of documents. Continue dialysis as tolerated and as needed in the hospital. Job ID: [id number]
--- NOTE | 2019-12-04 18:17 | PDOC.HOSPP ---
- Subjective Encounter Date: 12/04/19 Encounter Time: 18:00 Subjective: The patient went for her fistula this morning. She received ativan and versed for sedation and was very drowsy upon evaluation. She then went for dialysis, patient still noted to be drowsy in dialysis and per staff has not woken up much - Objective Vital Signs & Weight: Vital Signs (12 hours) Temp Pulse Resp BP Pulse Ox 12/04/19 11:35 98.3 F 85 14 132/74 99 12/04/19 06:54 99 Weight Admit Weight 132 lb Weight 136 lb 3.931 oz I&O: 12/03/19 12/04/19 12/05/19 06:59 06:59 06:59 Intake Total 530 750 Output Total 100 Balance 430 750 Result Diagrams: 12/04/19 04:14 12/04/19 04:14 Hospitalist ROS - Review of Systems ROS unobtainable: due to mental status - Medication Medications: Active Medications Generic Name Dose Route Start Last Admin Trade Name Freq PRN Reason Stop Dose Admin Acetaminophen 650 mg 11/29/19 13:41 12/02/19 23:14 Tylenol PO 650 mg Q4H PRN Administration Headache/Fever/Mild Pain (1-3) Calcitriol 0.25 mcg 11/29/19 21:00 12/04/19 11:29 Rocaltrol PO Not Given BID JAYDA Ferrous Sulfate 325 mg 11/29/19 13:41 12/03/19 13:06 Feosol PO 325 mg Q2DAYS JAYDA Administration Hydrocortisone Sodium Succinate 1 gm 11/29/19 21:00 12/04/19 11:42 Preparation H Hc Cream TOP 1 gm BID JAYDA Administration Nifedipine 30 mg 11/30/19 09:00 12/04/19 11:31 Procardia Xl PO Not Given DAILY JAYDA Ondansetron HCl 4 mg 11/29/19 13:41 12/02/19 08:16 Zofran Odt PO 4 mg Q6H PRN Administration Nausea/Vomiting Polyethylene Glycol 17 gm 12/03/19 16:24 12/03/19 17:49 Miralax PO 17 gm DAILYPRN PRN Administration Constipation Sevelamer Carbonate 800 mg 11/29/19 17:00 12/04/19 11:51 Renvela PO Not Given TID-WM JAYDA - Exam General - other findings: sedated, opens eyes to sternal rub Eye: anicteric sclera ENT: normocephalic atraumatic, no oropharyngeal lesions Neck: no JVD Heart: RRR, no murmur, no gallops, no rubs Respiratory: CTAB, no wheezes, no rales, no ronchi Gastrointestinal: soft, non-tender, non-distended, normal bowel sounds Extremities: no cyanosis, no clubbing, no edema Hosp A/P - Plan This is a 39 year old female with past medical history of glomerulosclerosis presenting with dizziness, fatigue, weakness nausea, has not received dialysis in CKD stage with global glomeruloscerosis -got dialysis 12/01. Had fistula placed today - plan to d/c tomorrow Anemia -Hb 7, stable. Check iron panel/B12/folate tomorrow Hypokalemia -resolved Hyperphosphatemia -resolved Elevated troponin - likely from ESRD. No chest pain - ECHO shows mild MR and mild TR with no wall motion abnormalities
--- NOTE | 2019-12-04 22:16 | PDOC.EVN ---
Event Note - Event Note Event Note: Notified by RN, patient appears lethargic and delayed movements since returning from dialysis. On exam, patient reports facial numbness and weakness/heaviness in right upper extremity. Slight weakness in her LUE. Bilateral lower extremities are not as heavy and she is able to SLR to 15 degrees. Lower extremity sensation intact. EOM intact. Speech normal. Possible facial droop, though appears to have decreased effort to smile. No tongue deviation. Patient reportedly well in herself recent nights she was walking independently around her room while on the phone with her with normal speech/ROM and sensation. Patient states this just happened a little while ago and she did not feel this way during dialysis. Denies any dizziness. No headache but complaining of heaviness in her eyes. Will obtain CT head as per discussion with Dr. Almeida.
[2019-12-05 05:17] LABS: Hemoglobin 8.3 g/dL (12.0-16.0); Mean Corpuscular HGB CONC 32.7 g/dL (32.0-36.0); Mean Corpuscular Hemoglobin 30.6 pg (27.0-31.0); Mean Corpuscular Volume 93.5 fL (78.0-98.0); Mean Platelet Volume 8.4 fL (7.4-10.4); Platelet Count 150 thou/uL (130-400); RBC Distribution Width 11.5 % (11.5-14.5); White Blood Cell (WBC) Count 5.8 thou/uL (4.8-10.8)
[2019-12-05 05:38] LABS: ALT (SGPT) 11 U/L (8-55); AST (SGOT) 26 U/L (5-34); Alkaline Phosphatase 104 U/L (40-110); Anion Gap 17 mmol/L (10-20); BUN (Urea Nitrogen) 18 mg/dL (7.0-18.7); Bilirubin, Total 0.7 mg/dL (0.2-1.2); Calc. Creatinine Clearance 16 mL/min (70-130); Carbon Dioxide 26 mmol/L (22-29); Chloride 100 mmol/L (98-107); Estimated GFR-MDRD 11; Glucose 82 mg/dL (70-105); Iron 35 ug/dL (50-170); Iron Binding Capacity, Total 259 mcg/dL (265-497); Potassium 4.8 mmol/L (3.5-5.1); Sodium 138 mmol/L (136-145)
[2019-12-05 05:43] LABS: Iron 34 ug/dL (50-170); Iron Binding Capacity, Total 255 mcg/dL (265-497)
--- NOTE | 2019-12-05 07:51 | CT ---
HEAD CT: DATE: 12/04/2019. HISTORY: Left upper extremity weakness, facial weakness. TECHNIQUE: Axial CT imaging at 5 mm intervals from the vertex through the skull base without contrast. FINDINGS: The osseous structures appear somewhat sclerotic, which signify renal osteodystrophy. There is no in tracranial hemorrhage, midline shift, mass effect, or ventricular enlargement. IMPRESSION: No intracranial hemorrhage. POS: [facility]
[2019-12-05] MEDS: NIFEdipine XL 30 MG TAB PO SCH (08:21)
[2019-12-05] MEDS: Sevelamer Carbonate 800 MG TAB PO SCH ×3 (08:21→16:51)
[2019-12-05] MEDS: Calcitriol 0.25 MCG CAP PO SCH ×2 (08:21→19:54)
[2019-12-05] MEDS: Preparation H HC 1% Cream 26 GM TUBE TOP SCH (08:22)
[2019-12-05] MEDS: Acetaminophen 325 MG TAB PO PRN (11:01)
--- NOTE | 2019-12-05 12:44 | PRG ---
DATE OF SERVICE: 12/05/2019 SUBJECTIVE: Patient was seen and examined at bedside and overnight events noted. Patient denies any shortness of breath or chest pain or palpitation. No history of nausea or vomiting or diarrhea or fever or chills or cramps. OBJECTIVE: GENERAL: This is a well-built female, in no apparent distress. VITAL SIGNS: Temperature 96. Heart rate 86. Respiratory rate 12. Blood pressure 118/57. HEENT: Atraumatic, normocephalic. Oral mucosa is moist. Neck: Supple. CARDIOVASCULAR: S1, S2 heard. Rate and rhythm regular. RESPIRATORY: Clear to auscultation. GASTROINTESTINAL: Abdomen is soft. MUSCULOSKELETAL: No tenderness. No edema. DERMATOLOGIC: No skin rash. NEUROLOGIC: Alert and awake and oriented x3. No focal neurologic deficits. Moving all the extremities. PSYCHIATRIC: Mood and affect normal. LABORATORY DATA: Potassium 4.8, BUN is 18, creatinine is 4.4. ASSESSMENT AND PLAN: 1. End-stage renal disease. Continue hemodialysis. 2. Hypertension. 3. Anemia. 4. Hyperkalemia. Continue dialysis as tolerated. Job ID: [id number]
[2019-12-05] MEDS: oxyCODONE 5 MG TAB PO PRN ×2 (13:48→19:53)
[2019-12-05] MEDS: Ferrous Sulfate 325 MG TAB PO SCH (13:48)
--- NOTE | 2019-12-05 14:41 | PDOC.HOSPP ---
- Subjective Encounter Date: 12/05/19 Encounter Time: 10:00 Subjective: The patient reports severe pain in right arm near surgery site. She states it is not controlled with current pain meds. I am unable to unwrap her TYLOR bandage due to severe pain - Objective Vital Signs & Weight: Vital Signs (12 hours) Temp Pulse Resp BP Pulse Ox 12/05/19 11:10 98.6 F 86 12 118/57 L 98 12/05/19 08:21 72 12/05/19 08:00 97 12/05/19 07:45 97.4 F L 72 16 92/54 L 97 12/05/19 07:02 98 12/05/19 03:03 98.2 F 99 18 88/51 L 98 Weight Admit Weight 134 lb 12.8 oz Weight 136 lb 3.931 oz I&O: 12/04/19 12/05/19 12/06/19 06:59 06:59 06:59 Intake Total 750 100 240 Balance 750 100 240 Result Diagrams: 12/05/19 04:11 12/05/19 04:11 Additional Labs: Accuchecks 12/04/19 20:39 POC Glucose 90 Hospitalist ROS - Review of Systems Constitutional: denies: fever, chills - Medication Medications: Active Medications Generic Name Dose Route Start Last Admin Trade Name Jerodq PRN Reason Stop Dose Admin Acetaminophen 650 mg 11/29/19 13:41 12/05/19 11:01 Tylenol PO 650 mg Q4H PRN Administration Headache/Fever/Mild Pain (1-3) Calcitriol 0.25 mcg 11/29/19 21:00 12/05/19 08:21 Rocaltrol PO 0.25 mcg BID JAYDA Administration Ferrous Sulfate 325 mg 11/29/19 13:41 12/05/19 13:48 Feosol PO 325 mg Q2DAYS JAYDA Administration Hydrocortisone Sodium Succinate 1 gm 11/29/19 21:00 12/05/19 08:22 Preparation H Hc Cream TOP 1 gm BID JAYDA Administration Nifedipine 30 mg 11/30/19 09:00 12/05/19 08:21 Procardia Xl PO 30 mg DAILY JAYDA Administration Ondansetron HCl 4 mg 11/29/19 13:41 12/02/19 08:16 Zofran Odt PO 4 mg Q6H PRN Administration Nausea/Vomiting Oxycodone HCl 2.5 mg 12/05/19 13:34 12/05/19 13:48 Oxycodone Ir PO 2.5 mg Q6H PRN Administration Severe Pain (7-10) Polyethylene Glycol 17 gm 12/03/19 16:24 12/03/19 17:49 Miralax PO 17 gm DAILYPRN PRN Administration Constipation Sevelamer Carbonate 800 mg 11/29/19 17:00 12/05/19 11:53 Renvela PO 800 mg TID-WM JAYDA Administration - Exam General Appearance: NAD, awake alert Eye: PERRL, anicteric sclera ENT: normocephalic atraumatic, no oropharyngeal lesions, moist mucosa Neck: supple, symmetric, no JVD, no thyromegaly, no lymphadenopathy, no carotid bruit Heart: RRR, no murmur, no gallops, no rubs, normal peripheral pulses Respiratory: CTAB, no wheezes, no rales, no ronchi, normal chest expansion, no tachypnea, normal percussion Gastrointestinal: soft, non-tender, non-distended, normal bowel sounds, no palpable masses, no hepatomegaly, no splenomegaly, no bruit Extremities: no cyanosis, no clubbing Extremities - other findings: RUE in cast. severe pain to light touch at the wrist. Diff unwrapping TYLOR Skin: normal turgor, no lesions, no rashes Neurological: cranial nerve grossly intact, normal sensation to touch, no weakness, no focal deficits, no new deficit Musculoskeletal: normal tone, normal strength, no muscle wasting Psychiatric: normal affect, normal behavior, A&O x 3 Hosp A/P - Plan This is a 39 year old female with past medical history of glomerulosclerosis presenting with dizziness, fatigue, weakness nausea, has not received dialysis in CKD stage with global glomeruloscerosis -got dialysis 12/03. Had fistula placed 12/04 - plan to d/c tomorrow RUE pain - postoperative from fistula. Dr. Hardy will re-evaluate today - ordered oxycodone prn Acute encephalopathy - improved. Likely from sedation 12/04 Anemia -Hb 7, stable. Iron panel shows anemia of chronic disease -check B12/folate Hypokalemia -resolved Hyperphosphatemia -resolved Elevated troponin - likely from ESRD. No chest pain - ECHO shows mild MR and mild TR with no wall motion abnormalities
--- NOTE | 2019-12-05 16:49 | PDOC.GSPN ---
Surgery Progress Note: Subj - Subjective Narrative: Patient is complaining of severe pain in her left elbow area especially with movement. She is hurting so badly that she cannot move her arm on her own. She is not having much pain in her wrist or hand except for incisional pain which is not out of the ordinary. On examination her elbow looks normal but she is both tender to palpation and tender with passive range of motion of her elbow and shoulder. She is able to move her wrist and fingers without any problems and has normal motion and sensation. Her incision looks good and she has an excellent thrill in her fistula. Vitals are okay. Assessment/plan: Doing well from a surgical standpoint following fistula surgery. She has an excellent thrill in her fistula and her incision looks good. She is complaining a lot of pain in her upper arm and I am perplexed as to the cause. She was positioned in a neutral position without hyperextension of the shoulder or elbow, and there was absolutely nothing done to her arm at the level that she is having pain. I am wondering if this is a neuropathy related to the block and have asked the nurse to call the pain service to evaluate her. From a surgical standpoint she is doing fine and does not require any further intervention. Her hand is warm and well-perfused and she is not having any distal pain to suggest intraoperative injury or steal. I will see her in my clinic in 2 to 3 weeks to evaluate whether her fistula is maturing appropriately. I am signing off for now. Surgery Progress Note: Obj - Vital signs Vital signs: Vital Signs - Most Recent Temp Pulse Resp BP Pulse Ox 98.6 F 93 14 111/57 L 99 12/05/19 15:30 12/05/19 15:30 12/05/19 15:30 12/05/19 15:30 12/05/19 15:30 Surgery Progress Note: Results - Labs Result Diagrams: 12/05/19 04:11 12/05/19 04:11 Lab results: Laboratory Results - last 24 hr 12/05/19 12/05/19 12/05/19 04:11 04:11 04:11 WBC 5.8 RBC 2.70 L Hgb 8.3 L Hct 25.2 L MCV 93.5 MCH 30.6 MCHC 32.7 RDW 11.5 Plt Count 150 MPV 8.4 Sodium 138 Potassium 4.8 Chloride 100 Carbon Dioxide 26 Anion Gap 17 BUN 18 Creatinine 4.49 H Estimated GFR (MDRD) 11 Glucose 82 Calcium 9.0 Iron 35 L 34 L TIBC 259 L 255 L % Saturation 13 L Ferritin Total Bilirubin 0.7 AST 26 ALT 11 Alkaline Phosphatase 104 Serum Total Protein 7.0 Albumin 4.0 Globulin 3.0 Albumin/Globulin Ratio 1.3 12/05/19 04:11 WBC RBC Hgb Hct MCV MCH MCHC RDW Plt Count MPV Sodium Potassium Chloride Carbon Dioxide Anion Gap BUN Creatinine Estimated GFR (MDRD) Glucose Calcium Iron TIBC % Saturation Ferritin 142.06 Total Bilirubin AST ALT Alkaline Phosphatase Serum Total Protein Albumin Globulin Albumin/Globulin Ratio - Radiology Interpretation Chest x-ray Status: image reviewed by me, report reviewed by me (NAF)
--- NOTE | 2019-12-05 18:14 | RAD ---
2 views left forearm: 12/05/2019 COMPARISON: None HISTORY: Severe left arm pain FINDINGS: No fracture or dislocation. No radiopaque foreign body or subcutaneous gas. There are post operative clips anterior and lateral to the distal left radius. IMPRESSION: No acute findings.
[2019-12-05] MEDS ORDERED: Preparation H Ointment 57 gram tube TOP SCH (21:00)
[2019-12-06] MEDS: Hydrocortisone 1% Cream 30 GM TUBE TOP SCH ×3 (00:12→23:05)
[2019-12-06] MEDS: oxyCODONE 5 MG TAB PO PRN ×3 (01:52→17:34)
[2019-12-06 04:53] LABS: Hemoglobin 7.8 g/dL (12.0-16.0); Mean Corpuscular HGB CONC 32.6 g/dL (32.0-36.0); Mean Corpuscular Hemoglobin 30.7 pg (27.0-31.0); Mean Corpuscular Volume 94.3 fL (78.0-98.0); Mean Platelet Volume 8.5 fL (7.4-10.4); Platelet Count 144 thou/uL (130-400); RBC Distribution Width 11.1 % (11.5-14.5); Red Blood Cell (RBC) Count 2.55 mill/uL (4.20-5.40); White Blood Cell (WBC) Count 5.3 thou/uL (4.8-10.8)
[2019-12-06 05:22] LABS: ALT (SGPT) Less than 7 U/L (8-55); AST (SGOT) 27 U/L (5-34); Albumin 3.7 g/dL (3.5-5.0); Alkaline Phosphatase 103 U/L (40-110); Anion Gap 17 mmol/L (10-20); BUN (Urea Nitrogen) 48 mg/dL (7.0-18.7); Bilirubin, Total 0.6 mg/dL (0.2-1.2); Calc. Creatinine Clearance 10 mL/min (70-130); Calcium 8.6 mg/dL (7.8-10.44); Carbon Dioxide 24 mmol/L (22-29); Chloride 97 mmol/L (98-107); Estimated GFR-MDRD 6; Globulin 2.8 g/dL (2.4-3.5); Glucose 89 mg/dL (70-105); Potassium 4.8 mmol/L (3.5-5.1); Protein, Total 6.5 g/dL (6.0-8.3); Sodium 133 mmol/L (136-145)
[2019-12-06] MEDS ORDERED: Ergocalciferol 1.25 MG(50,000 UNITS) CAP PO SCH (09:00)
[2019-12-06] MEDS ORDERED: Heparin 10,000 UNITS/ 10 ML VIAL ONE ×2 (09:25→11:07)
[2019-12-06] MEDS ORDERED: Folic Acid 1 MG TAB PO SCH (09:30)
--- NOTE | 2019-12-06 11:08 | PRG ---
DATE OF SERVICE: 12/06/2019 SUBJECTIVE: Patient was seen and examined at bedside and overnight events noted. Patient denies any shortness of breath or chest pain or palpitation. No history of nausea or vomiting or diarrhea or fever or chills or cramps. OBJECTIVE: GENERAL: This is a well-built female, in no apparent distress. VITAL SIGNS: Temperature 98.5. Heart rate 99. Respiratory rate 18. Blood pressure 130/61. HEENT: Atraumatic, normocephalic. Oral mucosa is moist NECK: Supple. CARDIOVASCULAR: S1, S2 heard. Rate and rhythm regular. RESPIRATORY: Clear to auscultation. GASTROINTESTINAL: Abdomen is soft. MUSCULOSKELETAL: No tenderness. No edema. DERMATOLOGIC: No skin rash. NEUROLOGIC: Alert and awake and oriented X3. No focal neurologic deficits. Moving all the extremities. PSYCHIATRIC: Mood and affect normal. LABORATORY DATA: Potassium 4.8, BUN is 48, and creatinine is 7.4. ASSESSMENT AND PLAN: 1. End-stage renal disease. Continue on dialysis as tolerated. The patient is to have documents to arrange outpatient dialysis. 2. Hypertension. 3. Anemia. 4. Hyperkalemia. Continue dialysis as tolerated. Job ID: [id number]
[2019-12-06] MEDS: Sevelamer Carbonate 800 MG TAB PO SCH ×3 (11:14→17:34)
[2019-12-06] MEDS: Acetaminophen 325 MG TAB PO PRN (12:35)
[2019-12-06] MEDS: NIFEdipine XL 30 MG TAB PO SCH (12:36)
[2019-12-06] MEDS: Calcitriol 0.25 MCG CAP PO SCH ×2 (12:36→23:01)
--- NOTE | 2019-12-06 18:00 | ULT ---
DOPPLER VENOUS ULTRASOUND LEFT UPPER EXTREMITY INDICATION: Severe left arm pain after fistula placement TECHNIQUE: Grayscale, color Doppler spectral Doppler images were obtained of the left internal jugula r vein, left subclavian vein, left axillary vein, left brachial vein, left basilic vein, left ulnar vein and left radial vein. FINDINGS: There is normal compression, flow and augmentation seen within the venous structures of the left upper extremity. Upper left basilic vein was not assessed due to patient inability to position the arm. Patent fistula is seen within the left forearm. IMPRESSION: No evidence of venous thrombosis within the left upper extremity.
--- NOTE | 2019-12-06 18:03 | PDOC.HOSPP ---
- Subjective Encounter Date: 12/06/19 Encounter Time: 09:30 Subjective: The patient still has LUE pain. She is unable to move her left arm because of the pain. Jose Guadalupe has evaluated the patient, they are not sure whether nerve block was done or not, but feels her weakness is more proximal and nerve block typically more distal. She does have antecubital fossa pain and wrist pain - Objective Vital Signs & Weight: Vital Signs (12 hours) Temp Pulse Resp BP Pulse Ox 12/06/19 15:49 98.7 F 104 H 18 102/57 L 96 12/06/19 12:35 97.9 F 99 16 115/56 L 100 12/06/19 07:38 98.5 F 99 18 130/61 99 Weight Admit Weight 134 lb 12.8 oz Weight 134 lb 11.239 oz I&O: 12/05/19 12/06/19 12/07/19 06:59 06:59 06:59 Intake Total 100 1080 Output Total 450 Balance 100 630 Result Diagrams: 12/06/19 04:18 12/06/19 04:18 Hospitalist ROS - Review of Systems Constitutional: denies: fever, chills - Medication Medications: Active Medications Generic Name Dose Route Start Last Admin Trade Name Freq PRN Reason Stop Dose Admin Acetaminophen 650 mg 11/29/19 13:41 12/06/19 12:35 Tylenol PO 650 mg Q4H PRN Administration Headache/Fever/Mild Pain (1-3) Calcitriol 0.25 mcg 11/29/19 21:00 12/06/19 12:36 Rocaltrol PO 0.25 mcg BID JAYDA Administration Ergocalciferol 1.25 mg 12/06/19 09:00 12/06/19 12:36 Drisdol PO 1.25 mg Q7DAYS JAYDA Administration Ferrous Sulfate 325 mg 11/29/19 13:41 12/05/19 13:48 Feosol PO 325 mg Q2DAYS JAYDA Administration Hydrocortisone/Aloe 0 gm 12/05/19 21:00 12/06/19 12:37 Hydrocortisone 1% Cream TOP 1 applic BID JAYDA Administration Nifedipine 30 mg 11/30/19 09:00 12/06/19 12:36 Procardia Xl PO 30 mg DAILY JAYDA Administration Ondansetron HCl 4 mg 11/29/19 13:41 12/02/19 08:16 Zofran Odt PO 4 mg Q6H PRN Administration Nausea/Vomiting Oxycodone HCl 2.5 mg 12/05/19 13:34 12/06/19 17:34 Oxycodone Ir PO 2.5 mg Q6H PRN Administration Severe Pain (7-10) Polyethylene Glycol 17 gm 12/03/19 16:24 12/03/19 17:49 Miralax PO 17 gm DAILYPRN PRN Administration Constipation Sevelamer Carbonate 800 mg 11/29/19 17:00 12/06/19 17:34 Renvela PO 800 mg TID-WM JAYDA Administration - Exam General Appearance: NAD, awake alert Eye: PERRL, anicteric sclera ENT: normocephalic atraumatic, no oropharyngeal lesions Neck: no JVD Heart: RRR, no murmur, no gallops, no rubs Respiratory: CTAB, no wheezes, no rales, no ronchi Gastrointestinal: soft, non-tender, non-distended, normal bowel sounds Extremities: no cyanosis, no clubbing Extremities - other findings: patietn unable to lift up left uppeer extremity. Tend elbow and wrist. Skin - other findings: No signs of infection on the fistula Musculoskeletal - other findings: difficulty supinating wrist and tenderness on elbow. Psychiatric: normal affect, normal behavior, A&O x 3, oriented to place, oriented to time Hosp A/P - Plan This is a 39 year old female with past medical history of glomerulosclerosis presenting with dizziness, fatigue, weakness nausea, admitted for dialysis. Continues to be admitted due to severe LUE pain after fistula two days prior CKD stage with global glomeruloscerosis -continue with scheduled dialysis - pt illegal immigrant, unable to set up dialysis on discharge LUE pain/weakness - patient unable to lift up left arm due to pain. Dr. Hardy feels it is not related to fistula. Pain service has seen patient are not sure either - will obtain vascular US to rule out thrombophlebitis. Left forearm X ray shows no fracture - consider neurology consult/nerve conduction studies if weakness persists Acute encephalopathy - resolved Folate deficiency anemia -Hb 7, stable. Iron panel shows anemia of chronic disease - folate low, started folic acid supplementation Hypokalemia -resolved Hyperphosphatemia -resolved Elevated troponin - likely from ESRD. No chest pain - ECHO shows mild MR and mild TR with no wall motion abnormalities DVT prophylaxis: heparin Code status: full code
[2019-12-06] MEDS: Heparin 5,000 UNITS/ML VIAL SC SCH (23:01)
[2019-12-07] MEDS: Acetaminophen 325 MG TAB PO PRN ×2 (01:37→09:01)
[2019-12-07] MEDS: Calcitriol 0.25 MCG CAP PO SCH ×2 (08:46→21:28)
[2019-12-07] MEDS: Sevelamer Carbonate 800 MG TAB PO SCH ×3 (08:46→18:28)
[2019-12-07] MEDS: Folic Acid 1 MG TAB PO SCH (08:46)
[2019-12-07] MEDS: Heparin 5,000 UNITS/ML VIAL SC SCH ×3 (08:47→21:28)
[2019-12-07] MEDS: Hydrocortisone 1% Cream 30 GM TUBE TOP SCH ×2 (08:48→21:28)
[2019-12-07] MEDS: NIFEdipine XL 30 MG TAB PO SCH (10:40)
[2019-12-07] MEDS ORDERED: Sodium Chloride 0.9% 250 ML IV SCH (14:45)
--- NOTE | 2019-12-07 14:45 | PDOC.HOSPP ---
- Subjective Encounter Date: 12/07/19 Encounter Time: 10:30 Subjective: pt resting, she has no left flank pain; only left arm pain, south korean speaking only - Objective Vital Signs & Weight: Vital Signs (12 hours) Temp Pulse Resp BP Pulse Ox 12/07/19 11:59 98.1 F 89 16 83/52 L 97 12/07/19 08:36 98.0 F 85 18 91/50 L 98 12/07/19 03:06 98.9 F 108 H 18 80/51 L 98 Weight Admit Weight 134 lb 12.8 oz Weight 136 lb 4.8 oz I&O: 12/06/19 12/07/19 12/08/19 06:59 06:59 06:59 Intake Total 1080 960 Output Total 450 Balance 630 960 Result Diagrams: 12/06/19 04:18 12/06/19 04:18 Hospitalist ROS - Medication Medications: Active Medications Generic Name Dose Route Start Last Admin Trade Name Freq PRN Reason Stop Dose Admin Acetaminophen 650 mg 11/29/19 13:41 12/07/19 09:01 Tylenol PO 650 mg Q4H PRN Administration Headache/Fever/Mild Pain (1-3) Calcitriol 0.25 mcg 11/29/19 21:00 12/07/19 08:46 Rocaltrol PO 0.25 mcg BID JAYDA Administration Ergocalciferol 1.25 mg 12/06/19 09:00 12/06/19 12:36 Drisdol PO 1.25 mg Q7DAYS JAYDA Administration Ferrous Sulfate 325 mg 11/29/19 13:41 12/05/19 13:48 Feosol PO 325 mg Q2DAYS JAYDA Administration Folic Acid 1 mg 12/07/19 09:00 12/07/19 08:46 Folvite PO 1 mg DAILY JAYDA Administration Heparin Sodium (Porcine) 5,000 units 12/06/19 21:00 12/07/19 08:47 Heparin SC 5,000 units TID JAYDA Administration Hydrocortisone/Aloe 0 gm 12/05/19 21:00 12/07/19 08:48 Hydrocortisone 1% Cream TOP 1 applic BID JAYDA Administration Ondansetron HCl 4 mg 11/29/19 13:41 12/02/19 08:16 Zofran Odt PO 4 mg Q6H PRN Administration Nausea/Vomiting Oxycodone HCl 2.5 mg 12/05/19 13:34 12/06/19 17:34 Oxycodone Ir PO 2.5 mg Q6H PRN Administration Severe Pain (7-10) Polyethylene Glycol 17 gm 12/03/19 16:24 12/03/19 17:49 Miralax PO 17 gm DAILYPRN PRN Administration Constipation Sevelamer Carbonate 800 mg 11/29/19 17:00 12/07/19 12:03 Renvela PO 800 mg TID-WM JAYDA Administration - Exam Eye: PERRL ENT: normocephalic atraumatic Neck: supple Heart: RRR Respiratory: CTAB, normal chest expansion Gastrointestinal: soft, normal bowel sounds Hosp A/P - Plan 39 year old female with past medical history of glomerulosclerosis presenting with dizziness, fatigue, weakness nausea, admitted for dialysis. pain in the fistula area- CKD stage with global glomeruloscerosis -continue with scheduled dialysis - pt illegal immigrant, unable to set up dialysis on discharge---------->??? LUE pain/weakness - patient unable to lift up left arm due to pain. Dr. Hardy feels it is not related to fistula. Pain service also felt no def..etiol for the pain. - US -neg for thrombophlebitis. Left forearm X ray shows no fracture --exam does not show any abnormality -- not much swelling or erythema. -Dr. Anthony consulted -- though EMG/NCS prob..be done as outpt. Acute encephalopathy - resolved Folate deficiency anemia -Hb 7, stable. Iron panel shows anemia of chronic disease - folate low, started folic acid supplementation Hypokalemia -resolved Hyperphosphatemia -resolved Elevated troponin - likely from ESRD. No chest pain - ECHO shows mild MR and mild TR with no wall motion abnormalities DVT prophylaxis: heparin Code status: full code
[2019-12-07] MEDS: Ferrous Sulfate 325 MG TAB PO SCH (14:54)
[2019-12-07] MEDS ORDERED: Sodium Chloride 0.9% 250 ML IV PRN (15:59)
--- NOTE | 2019-12-08 06:47 | PRG ---
DATE OF SERVICE: 12/07/2019 SUBJECTIVE: Patient was seen and examined at bedside and overnight events noted. Patient denies any shortness of breath or chest pain or palpitation. No history of nausea or vomiting or diarrhea or fever or chills or cramps. OBJECTIVE: GENERAL: This is a well-built female, in no apparent distress. VITAL SIGNS: Temperature . Heart Rate 85. Respiratory rate 18. Blood pressure 91/50. HEENT: Atraumatic, normocephalic. Oral mucosa is moist. NECK: Supple. CARDIOVASCULAR: S1, S2 heard. Rate and rhythm regular. RESPIRATORY: Clear to auscultation. GASTROINTESTINAL: Abdomen is soft. MUSCULOSKELETAL: No tenderness. No edema. DERMATOLOGIC: No skin rash. NEUROLOGIC: Alert and awake and oriented x3. No focal neurologic deficits. Moving all the extremities. PSYCHIATRIC: Mood and affect normal. LABORATORY DATA: Potassium 4.8, BUN is 48, creatinine is 7.4. ASSESSMENT AND PLAN: 1. End-stage renal disease. Continue on hemodialysis as tolerated. 2. Hypertension. 3. Anemia. 4. Hyperkalemia, better. 5. Continue on dialysis as tolerated. Job ID: [id number]
[2019-12-08] MEDS: Heparin 5,000 UNITS/ML VIAL SC SCH ×3 (08:27→21:48)
[2019-12-08] MEDS: Calcitriol 0.25 MCG CAP PO SCH ×2 (08:27→21:47)
[2019-12-08] MEDS: Hydrocortisone 1% Cream 30 GM TUBE TOP SCH ×2 (08:27→21:48)
[2019-12-08] MEDS: Sevelamer Carbonate 800 MG TAB PO SCH ×3 (08:27→17:00)
[2019-12-08] MEDS: Folic Acid 1 MG TAB PO SCH (08:27)
--- NOTE | 2019-12-08 10:02 | CON ---
DATE OF CONSULTATION: 12/08/2019 CONSULTING PHYSICIAN: Hospitalist Service. IMPRESSION: Left antecubital pain following vascular procedure in the left arm. Given the localized nature, I would suspect it might be venous thrombosis. It does not appear to have any definitive neurologic character to it suggesting complex regional pain syndrome or some type of entrapment neuropathy. PLAN: Venous ultrasound of the left antecubital area. HISTORY OF PRESENT ILLNESS: Ms. Jude Ramos is a 39-year-old female, who presented with renal failure. She had a shunt placed in her left distal arm. Following the procedure, she reports that she has developed pain in the left antecubital area. The area is tender to touch. It hurts for her to move the elbow. She does not report any distal loss of sensation. She finds it difficult to move secondary to the pain. She has had this for several days now. She had a CT of the brain done, which was normal. Her echocardiogram of her heart showed normal ejection fraction of 55% to 60%. Her lab work is otherwise unremarkable other than a renal insufficiency. PAST MEDICAL HISTORY: Otherwise, negative. ALLERGIES: NONE REPORTED. SOCIAL HISTORY: No tobacco or alcohol reported. FAMILY HISTORY: Not obtainable. REVIEW OF SYSTEMS: Ten-system review of systems is otherwise negative. PHYSICAL EXAMINATION: GENERAL: She is a healthy-appearing middle-aged woman, in no acute distress. VITAL SIGNS: Have been stable. She is afebrile. HEENT: Unremarkable. EXTREMITIES: There is slight increased darkness to the skin of the left arm. There is no hypersensitivity to touch distally. She has some tenderness in the antecubital region. There is some vascular prominence suggesting venous engorgement in the antecubital region. NEUROLOGICAL: She is alert and cooperative. Cranial nerves are intact. She has normal strength in the distal left upper extremity. She is primarily limited by pain with flexion or extension of the elbow. Sensation in the hand was intact to touch. No abnormal movements were seen. SUMMARY: Middle-aged woman with some venous engorgement in the left antecubital region with tenderness. I do not see an underlying neurologic etiology. Job ID: [id number]
--- NOTE | 2019-12-08 12:28 | ULT ---
LEFT UPPER EXTREMITY VENOUS DOPPLER ULTRASOUND: HISTORY: Pain in the left elbow TECHNIQUE: Grayscale color-flow and spectral Doppler imaging of the deep venous systems of the upper extremities was performed bilaterally. FINDINGS: There is good flow, compression and normal spectral waveforms in the internal jugular, subclavian, ax illary, brachial, radial, ulnar, basilic and cephalic veins on the left. IMPRESSION: No evidence of DVT in the lower left upper extremity.
--- NOTE | 2019-12-08 13:23 | PDOC.HOSPP ---
- Subjective Encounter Date: 12/08/19 Encounter Time: 09:40 Subjective: still have some pain. but otherwise ok. US - neg for DVT, neurologically intact. - Objective Vital Signs & Weight: Vital Signs (12 hours) Temp Pulse Resp BP BP Pulse Ox 12/08/19 12:35 97.6 F 75 17 97/59 L 100 12/08/19 08:27 99 12/08/19 08:21 98.2 F 84 16 92/52 L 99 12/08/19 04:00 98 12/08/19 03:00 98.0 F 80 18 85/54 L 98 Weight Admit Weight 134 lb 12.8 oz Weight 97 lb 3.2 oz I&O: 12/07/19 12/08/19 12/09/19 06:59 06:59 06:59 Intake Total 960 795 Balance 960 795 Result Diagrams: 12/06/19 04:18 12/06/19 04:18 Hospitalist ROS - Medication Medications: Active Medications Generic Name Dose Route Start Last Admin Trade Name Freq PRN Reason Stop Dose Admin Acetaminophen 650 mg 11/29/19 13:41 12/07/19 09:01 Tylenol PO 650 mg Q4H PRN Administration Headache/Fever/Mild Pain (1-3) Calcitriol 0.25 mcg 11/29/19 21:00 12/08/19 08:27 Rocaltrol PO 0.25 mcg BID JAYDA Administration Ergocalciferol 1.25 mg 12/06/19 09:00 12/06/19 12:36 Drisdol PO 1.25 mg Q7DAYS JAYDA Administration Ferrous Sulfate 325 mg 11/29/19 13:41 12/07/19 14:54 Feosol PO 325 mg Q2DAYS JAYDA Administration Folic Acid 1 mg 12/07/19 09:00 12/08/19 08:27 Folvite PO 1 mg DAILY JAYDA Administration Heparin Sodium (Porcine) 5,000 units 12/06/19 21:00 12/08/19 08:27 Heparin SC 5,000 units TID JAYDA Administration Hydrocortisone/Aloe 0 gm 12/05/19 21:00 12/08/19 08:27 Hydrocortisone 1% Cream TOP 1 applic BID JAYDA Administration Ondansetron HCl 4 mg 11/29/19 13:41 12/02/19 08:16 Zofran Odt PO 4 mg Q6H PRN Administration Nausea/Vomiting Oxycodone HCl 2.5 mg 12/05/19 13:34 12/06/19 17:34 Oxycodone Ir PO 2.5 mg Q6H PRN Administration Severe Pain (7-10) Polyethylene Glycol 17 gm 12/03/19 16:24 12/03/19 17:49 Miralax PO 17 gm DAILYPRN PRN Administration Constipation Sevelamer Carbonate 800 mg 11/29/19 17:00 12/08/19 12:07 Renvela PO 800 mg TID-WM JAYDA Administration - Exam General Appearance: NAD, awake alert Eye: PERRL ENT: normocephalic atraumatic Neck: supple Heart: RRR, normal peripheral pulses Respiratory: CTAB, normal chest expansion Gastrointestinal: soft, normal bowel sounds Neurological: no focal deficits Hosp A/P - Plan 39 year old female with past medical history of glomerulosclerosis presenting with dizziness, fatigue, weakness nausea, admitted for dialysis. pain in the fistula area- CKD stage with global glomeruloscerosis -continue with scheduled dialysis - pt illegal immigrant, unable to set up dialysis on discharge---------->??? LUE pain/weakness - patient unable to lift up left arm due to pain. Dr. Hardy feels it is not related to fistula. Pain service also felt no def..etiol for the pain. - US -neg for thrombophlebitis. Left forearm X ray shows no fracture --exam does not show any abnormality -- not much swelling or erythema. -Dr. Anthony consulted --no need for any further study Acute encephalopathy - resolved Folate deficiency anemia -Hb 7, stable. Iron panel shows anemia of chronic disease - folate low, started folic acid supplementation Hypokalemia -resolved Hyperphosphatemia -resolved Elevated troponin - likely from ESRD. No chest pain - ECHO shows mild MR and mild TR with no wall motion abnormalities DVT prophylaxis: heparin Code status: full code we prefer to know whether any sha dialysis chair can be arranged prior to dc. pt is stable for dc. will address w.. CM on monday before dc.
[2019-12-09 04:07] VITALS: BMI 22.4
[2019-12-09 04:38] LABS: Anion Gap 19 mmol/L (10-20); BUN (Urea Nitrogen) 87 mg/dL (7.0-18.7); Calc. Creatinine Clearance 7 mL/min (70-130); Carbon Dioxide 24 mmol/L (22-29); Chloride 97 mmol/L (98-107); Estimated GFR-MDRD 4; Glucose 83 mg/dL (70-105); Potassium 5.2 mmol/L (3.5-5.1); Sodium 135 mmol/L (136-145)
--- NOTE | 2019-12-09 07:12 | PRG ---
DATE OF SERVICE: 12/08/2019 SUBJECTIVE: Patient was seen and examined at bedside and overnight events noted. Patient denies any shortness of breath or chest pain or palpitation. No history of nausea or vomiting or diarrhea or fever or chills or cramps. OBJECTIVE: GENERAL: This is a well-built female, in no apparent distress. VITAL SIGNS: Temperature 98.2. Pulse 84. Respiratory rate 16. Blood pressure 92/52. HEENT: Atraumatic, normocephalic. Oral mucosa is moist NECK: Supple. CARDIOVASCULAR: S1, S2 heard. Rate and rhythm regular. RESPIRATORY: Clear to auscultation. GASTROINTESTINAL: Abdomen is soft. MUSCULOSKELETAL: No tenderness. No edema. DERMATOLOGIC: No skin rash. NEUROLOGIC: Alert and awake and oriented X3. No focal neurologic deficits. Moving all the extremities. PSYCHIATRIC: Mood and affect normal. LABORATORY DATA: Potassium 4.8, BUN is 48, creatinine is 7.4. ASSESSMENT AND PLAN: 1. End-stage renal disease. Continue hemodialysis. 2. Edema. 3. Hypertension. 4. Anemia of CKD Continue dialysis as tolerated. Job ID: [id number] [facility]
[2019-12-09] MEDS ORDERED: Heparin 10,000 UNITS/ 10 ML VIAL ONE (09:22)
[2019-12-09] MEDS ORDERED: traMADol HCl 50 MG TAB PO PRN ×2 (10:00→11:26)
[2019-12-09] MEDS: Sevelamer Carbonate 800 MG TAB PO SCH ×2 (12:15→12:52)
--- NOTE | 2019-12-09 12:21 | PRG ---
DATE OF SERVICE: 12/09/2019 SUBJECTIVE: A 39-year-old female, being seen for end-stage renal disease. The patient denied any nausea, vomiting, or chest pain. OBJECTIVE: General: The patient is awake and alert. Vital Signs: Afebrile, pulse 75, breathing at 16, blood pressure 95/54. HEENT: Head normocephalic and atraumatic. Eyes intact, no ulcers. Nose intact, no ulcers. Ears intact, no ulcers. Neck: Supple. No JVD. Chest: Symmetrical and clear. Cardiovascular: Shows S1 and S2, no rub, no murmur. Gastrointestinal: Abdomen is soft, bowel sounds positive. Extremities: Show no edema or ulcers. Skin: Shows no rash or petechiae. Musculoskeletal: Shows no joint swelling or stiffness. Genitourinary: Shows no Hernandez or CVA tenderness. Neurologic: Motor intact. Cranial nerves intact. LABORATORY DATA: Reviewed. ASSESSMENT AND PLAN: 1. Stage 6 chronic kidney disease, stable. 2. Hypertension, stable. 3. Anemia, stable. 4. Medication based on GFR appropriate. Job ID: [id number]
[2019-12-09 12:47] VITALS: BP 102/55; TEMP 98
[2019-12-09] MEDS: Folic Acid 1 MG TAB PO SCH (12:51)
[2019-12-09] MEDS: Calcitriol 0.25 MCG CAP PO SCH (12:51)
[2019-12-09] MEDS: Heparin 5,000 UNITS/ML VIAL SC SCH (12:51)
[2019-12-09] MEDS: Ferrous Sulfate 325 MG TAB PO SCH (12:52)
[2019-12-09] MEDS: Hydrocortisone 1% Cream 30 GM TUBE TOP SCH (12:52)
--- NOTE | 2019-12-10 07:23 | DIS ---
DATE OF ADMISSION: 11/29/2019 DATE OF DISCHARGE: 12/09/2019 DISCHARGE DIAGNOSES: 1. Chronic kidney disease, stage 4, with global glomerulosclerosis. 2. Left upper extremity pain and weakness, closer to the arteriovenous fistula. 3. Acute encephalopathy that has resolved. 4. Folate deficiency. 5. Hypokalemia, hyperphosphatemia, elevated troponin due to end-stage renal disease, that has resolved. DISCHARGE MEDICATIONS: 1. Folic acid 1 mg daily. 2. Sodium bicarbonate 650 mg two tablets twice a day. 3. Vitamin D2 one capsule every 7 days. 4. Ferrous sulfate 325 mg daily. 5. Renvela 800 mg three times a day. 6. Calcitriol 0.25 mcg daily. CONSULTS: [employer]. She has gone through hemodialysis during her stay. She looks well, seen her in the hemodialysis area. Discharge plan described to her. The patient understands that she will be discharged today. PHYSICAL EXAMINATION: VITAL SIGNS: Temperature 98, pulse 88, saturating 98% on room air, blood pressure 102/55. GENERAL: The patient is alert, oriented. She appears well. She has a very little pain on her left arm. She is uncomfortable going home today. CARDIOVASCULAR: Regular rate and rhythm without murmurs, rubs, or gallops. LUNGS: Clear. HOSPITAL COURSE: This is a 39-year-old female with a history of glomerulosclerosis, presented with dizziness, fatigue and pain in the fistula area. The patient has undergone hemodialysis during her stay. Attempt for outpatient dialysis failed as the patient is an illegal immigrant. It appears that we would not be able to find any sha dialysis chair for her. She has to come to ER to get dialyzed. I checked with the dependency case manager on this matter prior to discharge. She also had left upper extremity pain. Dr. Hardy felt that this is not related to the fistula. Ultrasound is negative for thrombophlebitis and the left forearm x-ray showed no fractures. Exam did not show any abnormalities including no swelling or erythema in the area. I also consulted Dr. Anthony to make sure if we need any EMG nerve conduction studies as an outpatient. He does not feel that it is required. She has a folate deficiency for which she is given a folate supplement prescription. She has iron deficiency anemia with end-stage renal disease. She is on iron supplement. Her electrolytes were little abnormal including potassium, phosphorous that has been corrected. DISCHARGE INSTRUCTIONS: Activity as tolerated. Healthy heart diet. Follow up with primary care physician within a week. TIME SPENT: Discharge time took over 30 minutes. Job ID: [id number] MTDD
== END 2019-12-09 15:16 | disposition home or self-care (01) | DRG 673 ==
LOC: ERS 06:36 → EDBD 10:44 → OBSVTOIN 10:44 → 2NO 10:44
PROVIDERS: ADMIT Family Medicine; ATTEND Family Medicine
PROC: 031C3ZF Bypass Left Radial Artery to Lower Arm Vein, Percutaneous Approach (ICD-10-PCS; principal; 2019-12-04)
PROC: 5A1D70Z Performance of Urinary Filtration, Intermittent, Less than 6 Hours Per Day (ICD-10-PCS; 2019-12-04)
DX: I12.0 Hypertensive chronic kidney disease with stage 5 chronic kidney disease or end stage renal disease (principal); N18.6 End stage renal disease; G92 Toxic encephalopathy; G90.512 Complex regional pain syndrome I of left upper limb; E87.2 Acidosis; D63.1 Anemia in chronic kidney disease; E83.39 Other disorders of phosphorus metabolism; E83.51 Hypocalcemia; E83.41 Hypermagnesemia; F32.9 Major depressive disorder, single episode, unspecified; D52.9 Folate deficiency anemia, unspecified; L23.1 Allergic contact dermatitis due to adhesives; T42.75XA Adverse effect of unspecified antiepileptic and sedative-hypnotic drugs, initial encounter; M79.632 Pain in left forearm; Z90.710 Acquired absence of both cervix and uterus; Z90.49 Acquired absence of other specified parts of digestive tract; Z79.899 Other long term (current) drug therapy; Z79.82 Long term (current) use of aspirin; Z79.01 Long term (current) use of anticoagulants; Z79.84 Long term (current) use of oral hypoglycemic drugs
CPT/HCPCS: 36415; 36416; 70450; 71045; 80048; 80053; 81001; 82533; 82550; 82553; 82565; 82607; 82728; 82746; 83540; 83550; 83690; 83735; 84100; 84132; 84443; 84484; 84703; 85014; 85018; 85025; 85027; 86704; 86706; 86803; 86850; 86900; 86901; 87340; 90935; 93005; 93306; 93970; G0257; G0365; J0670; J0690; J1644; J2250; J2370; J2704; J2720; J3010; Q0162; S0020